=== PATIENT | female | born 1960 | race Caucasian/White ===

== ENCOUNTER 2017-07-29 08:10 | Day surgery (SDC) | payer OTHER ==
[~2017-07-29 08:10] MED LIST: ACTOS15 MG PO; AMARIL; SYNTHROID75 MCG PO; VASOTEC2.5 MG PO; [UNRECOGNIZED DRUG - OTHER]
== END 2017-07-29 15:40 | disposition home or self-care (01) ==
LOC: CIR.AMB 08:10
DX: M77.11 Lateral epicondylitis, right elbow (principal); S56.511A Strain of other extensor muscle, fascia and tendon at forearm level, right arm, initial encounter